=== PATIENT | male | born 1955 | race Caucasian/White ===

== ENCOUNTER 2019-03-12 16:03 | Observation (INO) | payer OTHER ==
[2019-03-12 16:45] LABS: ABSOLUTE BASOPHILS # (AUTO) 0.1 10^3/uL (0.0-0.2); ABSOLUTE EOSINOPHILS # (AUTO) 0.3 10^3/uL (0.0-0.6); ABSOLUTE LYMPHOCYTES (AUTO) 1.4 10^3/uL (0.5-4.7); ABSOLUTE MONOCYTES (AUTO) 0.9 10^3/uL (0.1-1.4); BASOPHILS % (AUTO) 1.3 % (0-2); HEMATOCRIT 39.5 % (37.9-51.0); HEMOGLOBIN 13.4 g/dL (13.5-17.0); LYMPHOCYTES % (AUTO) 18.3 % (13-45); MEAN CORPUSCULAR HEMOGLOBIN 30.9 pg (27.0-33.4); MEAN CORPUSCULAR HGB CONC 33.9 g/dL (32.0-36.0); MEAN CORPUSCULAR VOLUME 91 fl (80-97); MONOCYTES % (AUTO) 11.3 % (3-13); PLATELET COUNT 189 10^3/uL (150-450); RED BLOOD COUNT 4.33 10^6/uL (4.35-5.55); RED CELL DISTRIBUTION WIDTH 13.9 % (11.5-14.0); SEGMENTED NEUTROPHILS % (AUTO) 65.1 % (42-78); TOTAL CELLS COUNTED % (AUTO) 100 %; WHITE BLOOD COUNT 7.6 10^3/uL (4.0-10.5)
--- NOTE | 2019-03-12 16:55 | RADIOLOGY REPORT (SQ) ---
EXAM DESCRIPTION: CT HEAD WITHOUT COMPLETED DATE/TIME: 03/12/2019 4:40 pm REASON FOR STUDY: bed 18 s/p fall on blood thinners +LOC per neisha COMPARISON: None. TECHNIQUE: Axial images acquired through the brain without intravenous contrast. Images reviewed wi th bone, brain and subdural windows. Additional sagittal and coronal reconstructions were generated. Images stored on PACS. All CT scanners at this facility use dose modulation, iterative reconstruction, and/or weight based d osing when appropriate to reduce radiation dose to as low as reasonably achievable (ALARA). [facility]: Dose Right [facility]: CareDose [facility]: Dose Right [facility]: Teradose 4D [facility]: Smart [place] RADIATION DOSE: CT Rad equipment meets quality standard of care and radiation dose reduction techniq ues were employed. CTDIvol: 53.2 mGy. DLP: 991 mGy-cm. mGy. LIMITATIONS: None. FINDINGS: VENTRICLES: Normal size and contour. CEREBRUM: No masses. No hemorrhage. No midline shift. No evidence for acute infarction. Normal gra y/white matter differentiation. No areas of low density in the white matter. CEREBELLUM: No masses. No hemorrhage. No alteration of density. No evidence for acute infarction. EXTRAAXIAL SPACES: No fluid collections. No masses. ORBITS AND GLOBE: No intra- or extraconal masses. Normal contour of globe without masses. CALVARIUM: No fracture. PARANASAL SINUSES: No fluid or mucosal thickening. SOFT TISSUES: No mass or hematoma. OTHER: No other significant finding. IMPRESSION: NORMAL BRAIN CT WITHOUT CONTRAST. EVIDENCE OF ACUTE STROKE: NO. COMMENT: Quality ID # [id number]: Final reports with documentation of one or more dose reduction techniques (e.g., Automated exposure control, adjustment of the mA and/or kV according to patient size, use of iterative reconstruction technique) TECHNICAL DOCUMENTATION: JOB ID: [id number] [employer]- All Rights Reserved Reading location - IP/workstation name: [email or web address]
--- NOTE | 2019-03-12 16:56 | RADIOLOGY REPORT (SQ) ---
EXAM DESCRIPTION: CT CERVICAL SPINE WITHOUT COMPLETED DATE/TIME: 03/12/2019 4:40 pm REASON FOR STUDY: bed 18 s/p fall on blood thinners +LOC per neisha COMPARISON: None. TECHNIQUE: Axial images acquired through the cervical spine without intravenous contrast. Images re viewed with lung, soft tissue and bone windows. Reconstructed coronal and sagittal MPR images review ed. Images stored on PACS. All CT scanners at this facility use dose modulation, iterative reconstruction, and/or weight based d osing when appropriate to reduce radiation dose to as low as reasonably achievable (ALARA). [facility]: Dose Right [facility]: CareDose [facility]: Dose Right [facility]: Teradose 4D [facility]: [place] RADIATION DOSE: CT Rad equipment meets quality standard of care and radiation dose reduction techniq ues were employed. CTDIvol: 19.2 mGy. DLP: 437 mGy-cm. mGy. LIMITATIONS: None. FINDINGS: ALIGNMENT: Anatomic. MINERALIZATION: Normal. VERTEBRAL BODIES: No fractures or dislocation. DISCS: There is narrowing of the disc at C3-4 with marginal osteophytes. FACETS, LATERAL MASSES, POSTERIOR ELEMENTS: No fractures. No dislocation. No acute findings. HARDWARE: None in the spine. VISUALIZED RIBS: No fractures. LUNG APICES AND SOFT TISSUES: No significant or acute findings. OTHER: No other significant finding. IMPRESSION: Mild degenerative disc disease and spondylosis. No acute finding. TECHNICAL DOCUMENTATION: JOB ID: [id number] Quality ID # [id number]: Final reports with documentation of one or more dose reduction techniques (e.g., Au tomated exposure control, adjustment of the mA and/or kV according to patient size, use of iterative reconstruction technique) 2010 [employer]- All Rights Reserved Reading location - IP/workstation name: [email or web address]
--- NOTE | 2019-03-12 17:03 | ER Document Report ---
ED General - General Chief Complaint: Syncope Stated Complaint: POSSIBLE SYNCOPE Time Seen by Provider: 03/12/19 16:36 TRAVEL OUTSIDE OF THE [place] IN LAST 30 DAYS: No - HPI Patient complains to provider of: syncope Notes: passed out at [facility] no symptoms prior to passing out denies chest pain, headache, focal arm/leg weakness or numbness no neck stiffness no rashes Past Medical History - General Information source: Patient - Social History Smoking Status: Unknown if Ever Smoked Family History: Reviewed & Not Pertinent Patient has suicidal ideation: No Patient has homicidal ideation: No Renal/ Medical History: Denies: Hx Peritoneal Dialysis Review of Systems - Review of Systems Constitutional: No symptoms reported EENT: No symptoms reported Cardiovascular: Syncope Respiratory: No symptoms reported Gastrointestinal: No symptoms reported Genitourinary: No symptoms reported Male Genitourinary: No symptoms reported Musculoskeletal: No symptoms reported Skin: No symptoms reported Hematologic/Lymphatic: No symptoms reported Neurological/Psychological: No symptoms reported Physical Exam - Vital signs Vitals: Pulse Ox 98 03/12/19 16:16 Interpretation: Normal - General General appearance: Appears well, Alert - HEENT Head: Normocephalic, Atraumatic Eyes: Normal Pupils: PERRL - Respiratory Respiratory status: No respiratory distress Chest status: Nontender Breath sounds: Normal Chest palpation: Normal - Cardiovascular Rhythm: Regular Heart sounds: Normal auscultation Murmur: No - Abdominal Inspection: Normal Distension: No distension Bowel sounds: Normal Tenderness: Nontender Organomegaly: No organomegaly - Back Back: Normal, Nontender - Extremities General upper extremity: Normal inspection, Nontender, Normal color, Normal ROM, Normal temperature General lower extremity: Normal inspection, Nontender, Normal color, Normal ROM, Normal temperature, Normal weight bearing. No: Enrrique's sign - Neurological Neuro grossly intact: Yes Cognition: Normal Orientation: AAOx4 [place] Coma Scale Eye Opening: Spontaneous [place] Coma Scale Verbal: Oriented [place] Coma Scale Motor: Obeys Commands [place] Coma Scale Total: 15 Speech: Normal Motor strength normal: LUE, RUE, LLE, RLE Sensory: Normal - Psychological Associated symptoms: Normal affect, Normal mood - Skin Skin Temperature: Warm Skin Moisture: Dry Skin Color: Normal Course - Re-evaluation Re-evalutation: 03/12/19 17:59 patient w/ syncopal episode workup in ED unremarkable admit requested given age and h/o pacemaker (no evidence of failure at thist elan) - Vital Signs Vital signs: Temp Pulse Resp BP Pulse Ox 98 F 13 150/91 H 99 03/12/19 16:46 03/12/19 17:03 03/12/19 17:03 03/12/19 17:03 - Laboratory Result Diagrams: 03/12/19 16:30 03/12/19 16:30 Laboratory results interpreted by me: 03/12/19 03/12/19 03/12/19 16:30 16:30 16:30 RBC 4.33 L Hgb 13.4 L Carbon Dioxide 31 H Est GFR (Non-Af Amer) 59 L NT-Pro-B Natriuret Pep 1460 H - EKG Interpretation by Tn EKG shows normal: Sinus rhythm Rate: Normal - 63 Additional EKG results interpreted by me: 03/12/19 17:59 Q waves in anterior leads. Q waves in inferior leads. nonspecific T wave changes. Discharge - Discharge Clinical Impression: Syncope Qualifiers: Syncope type: unspecified Qualified Code(s): R55 - Syncope and collapse Condition: Stable Disposition: ADMITTED INPATIENT Admitting Provider: Fariba (Hospitalist) Unit Admitted: Telemetry
[2019-03-12 17:22] LABS: ALBUMIN 4.2 g/dL (3.5-5.0); ALKALINE PHOSPHATASE 57 U/L (38-126); ANION GAP 7 (5-19); ASPARTATE AMINO TRANSFERASE 43 U/L (17-59); BILIRUBIN,DIRECT 0.3 mg/dL (0.0-0.4); BILIRUBIN,TOTAL 0.5 mg/dL (0.2-1.3); BLOOD UREA NITROGEN 17 mg/dL (7-20); CALCIUM 9.1 mg/dL (8.4-10.2); CARBON DIOXIDE 31 mmol/L (22-30); CHLORIDE 101 mmol/L (98-107); CREATINE KINASE 78 U/L (55-170); GLUCOSE 94 mg/dL (75-110); TOTAL PROTEIN 7.9 g/dL (6.3-8.2)
[2019-03-12 17:33] LABS: CREATINE KINASE MB 1.04 ng/mL (<4.55)
[2019-03-12 17:37] LABS: TROPONIN I < 0.012 ng/mL
--- NOTE | 2019-03-12 17:53 | EKG REPORT ---
SEVERITY:- ABNORMAL ECG - SINUS RHYTHM PROBABLE INFERIOR INFARCT, AGE INDETERMINATE ANTERIOR INFARCT, AGE INDETERMINATE BORDERLINE PROLONGED QT INTERVAL : Confirmed by: Danielito Be MD 12-Mar-2019 17:52:39
[2019-03-12 18:04] LABS: APPEARANCE,URINE CLEAR; BILIRUBIN,URINE NEGATIVE (NEGATIVE); COLOR,URINE YELLOW; GLUCOSE, URINE NEGATIVE (NEGATIVE); KETONES,URINE NEGATIVE (NEGATIVE); LEUKOCYTE ESTERASE,URINE NEGATIVE (NEGATIVE); NITRITE,URINE NEGATIVE (NEGATIVE); PROTEIN,URINE NEGATIVE (NEGATIVE); URINE SPECIFIC GRAVITY 1.009; UROBILINOGEN,URINE NEGATIVE mg/dL (<2.0)
[2019-03-12] MEDS ORDERED: NORMAL SALINE 1000 ML 1,000 ML IV PRN (18:15)
--- NOTE | 2019-03-12 18:38 | ADVANCED CARE ---
- Diagnosis (1) Syncope Diagnosis Current: Yes (2) CAD (coronary artery disease) Diagnosis Current: Yes Resuscitation Status: Full Code Discussion: Discussed with patient. He says he is a full code and prefers chest compressions, defibrillation or mechanical ventilation if the need arises. He says that his , Nichole Tiwari is his surrogate medical decision maker.
--- NOTE | 2019-03-12 18:38 | PDOC H&P ---
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 Patient says that he was walking at [facility] around 3 PM and he suddenly passed out. He denies any prodromal symptoms and denies any palpitations, lightheadedness or dimming of vision prior to the episode. He says he will and denies any confusion but was not sure how he passed out. He denies any urinary bowel incontinence. No reported seizure-like activity. Upon encounter, he appears comfortable and denies any chest pain or shortness of breath. He does say that he has been drinking more coffee in the past few days and thinks he might have been dehydrated. He is not sure why he had an AICD placed but he did say that he arrested in 2000 from an UT and was resuscitated. He said that he had a stent placement that time. He says that the AICD was placed in 2004 at the [facility] but is not sure about the specific reason. He denies recalling a previous diagnosis of CHF. Social History Smoking Status: Unknown if Ever Smoked Family History Family History: Reviewed & Not Pertinent Parental Family History Reviewed: Yes - No premature CAD Children Family History Reviewed: No Sibling(s) Family History Reviewed.: No Review of Systems All systems: reviewed and no additional remarkable complaints except as stated - As mentioned in HPI Physical Exam Vital Signs: Temp Pulse Resp BP Pulse Ox 98 F 13 150/91 H 99 03/12/19 16:46 03/12/19 17:03 03/12/19 17:03 03/12/19 17:03 Intake & Output 03/11/19 03/12/19 03/13/19 06:59 06:59 06:59 Weight 190 lb General appearance: PRESENT: no acute distress, well-developed, well-nourished Head exam: PRESENT: atraumatic, normocephalic Eye exam: PRESENT: conjunctiva pink, EOMI, PERRLA. ABSENT: scleral icterus Ear exam: PRESENT: normal external ear exam Mouth exam: PRESENT: moist, tongue midline Neck exam: ABSENT: carotid bruit, JVD, lymphadenopathy, thyromegaly Respiratory exam: PRESENT: clear to auscultation nayely. ABSENT: rales, rhonchi, wheezes Cardiovascular exam: PRESENT: RRR. ABSENT: diastolic murmur, rubs, systolic murmur Pulses: PRESENT: normal dorsalis pedis pul GI/Abdominal exam: PRESENT: normal bowel sounds, soft. ABSENT: distended, guarding, mass, organolmegaly, rebound, tenderness Rectal exam: PRESENT: deferred Neurological exam: PRESENT: alert, awake, oriented to person, oriented to place, oriented to time, oriented to situation, CN II-XII grossly intact. ABSENT: motor sensory deficit Results Laboratory Results: 03/12/19 16:30 03/12/19 16:30 03/12/19 03/12/19 03/12/19 16:30 16:30 17:28 WBC 7.6 RBC 4.33 L Hgb 13.4 L Hct 39.5 MCV 91 MCH 30.9 MCHC 33.9 RDW 13.9 Plt Count 189 Seg Neutrophils % 65.1 Lymphocytes % 18.3 Monocytes % 11.3 Eosinophils % 4.0 Basophils % 1.3 Absolute Neutrophils 5.0 Absolute Lymphocytes 1.4 Absolute Monocytes 0.9 Absolute Eosinophils 0.3 Absolute Basophils 0.1 Sodium 138.7 Potassium 4.0 Chloride 101 Carbon Dioxide 31 H Anion Gap 7 BUN 17 Creatinine 1.24 Est GFR ( Amer) > 60 Est GFR (Non-Af Amer) 59 L Glucose 94 Calcium 9.1 Total Bilirubin 0.5 AST 43 Alkaline Phosphatase 57 Total Protein 7.9 Albumin 4.2 Urine Color YELLOW Urine Appearance CLEAR Urine pH 6.0 Ur Specific [place] 1.009 Urine Protein NEGATIVE Urine Glucose (UA) NEGATIVE Urine Ketones NEGATIVE Urine Blood LARGE H Urine Nitrite NEGATIVE Ur Leukocyte Esterase NEGATIVE Urine WBC (Auto) 0 Urine RBC (Auto) 19 03/12/19 03/12/19 03/12/19 16:30 16:30 16:30 Creatine Kinase 78 CK-MB (CK-2) 1.04 Troponin I < 0.012 NT-Pro-B Natriuret Pep 1460 H Impressions: Cervical Spine CT 03/12/19 00:00 IMPRESSION: Mild degenerative disc disease and spondylosis. No acute finding. Head CT 03/12/19 00:00 IMPRESSION: NORMAL BRAIN CT WITHOUT CONTRAST. EVIDENCE OF ACUTE STROKE: NO. Assessment and Plan - Diagnosis (1) Syncope Qualifiers: Syncope type: unspecified Qualified Code(s): R55 - Syncope and collapse Is this a current diagnosis for this admission?: Yes Plan: CT head was negative. We will check orthostatic vital signs. Will observe patient on telemetry overnight. Will also order for pacemaker interrogation. Order carotid Dopplers. Work-up has been unremarkable so far. He does have an elevated BNP but denies CHF symptoms. He denies PND or exertional dyspnea. He does not recall previou s diagnosis of CHF. Will request records from PCP first. Consider pursuing an echocardiogram if no previous echo has been done recently with PCP. Request records from PCP. (2) CAD (coronary artery disease) Is this a current diagnosis for this admission?: Yes Plan: Resume home meds once verified. - Time Time Spent with patient: 25-34 minutes
[2019-03-12] MEDS: HEPARIN SOD (PORCINE) 5,000 UNIT/ML 1 ML VIAL SUBCUT SCH (23:26)
[2019-03-12] MEDS: KETOROLAC TROMETHAMINE INJ/PF 30 MG/1 ML SDV IV PRN (23:30)
[2019-03-13] MEDS: HEPARIN SOD (PORCINE) 5,000 UNIT/ML 1 ML VIAL SUBCUT SCH (09:20)
--- NOTE | 2019-03-13 09:22 | Progress Note Acknowledgement ---
Progress Note Acknowledgement Progess Note Acknowledgement: I, the undersigned member of the medical staff with appropriate privileges and with supervisory authority over [Dominick Gutiérrez], a dependent practice allied health professional, acknowledge that I have reviewed the progress notes entered on this patient, and in my professional judgment believe that the assessment made and/or any care evidenced was appropriate
--- NOTE | 2019-03-13 09:25 | PDOC PROGRESS REPORT ---
Subjective Progress Note for:: 03/13/19 Subjective:: March-no complaints this a.m. Reason For Visit: SYNCOPE Physical Exam Vital Signs: Temp Pulse Resp BP Pulse Ox 97.6 F 61 14 128/58 H 99 03/13/19 08:18 03/13/19 08:18 03/13/19 08:18 03/13/19 08:18 03/13/19 08:18 Intake & Output 03/12/19 03/13/19 03/14/19 06:59 06:59 06:59 Weight 86.2 kg General appearance: PRESENT: no acute distress, well-developed, well-nourished Head exam: PRESENT: atraumatic, normocephalic Eye exam: PRESENT: conjunctiva pink, EOMI, PERRLA. ABSENT: scleral icterus Ear exam: PRESENT: normal external ear exam Mouth exam: PRESENT: moist, tongue midline Neck exam: ABSENT: carotid bruit, JVD, lymphadenopathy, thyromegaly Respiratory exam: PRESENT: clear to auscultation nayely. ABSENT: rales, rhonchi, wheezes Cardiovascular exam: PRESENT: RRR. ABSENT: diastolic murmur, rubs, systolic murmur Pulses: PRESENT: normal dorsalis pedis pul Vascular exam: PRESENT: normal capillary refill GI/Abdominal exam: PRESENT: normal bowel sounds, soft. ABSENT: distended, guarding, mass, organolmegaly, rebound, tenderness Rectal exam: PRESENT: deferred Extremities exam: PRESENT: full ROM. ABSENT: calf tenderness, clubbing, pedal edema Neurological exam: PRESENT: alert, awake, oriented to person, oriented to place, oriented to time, oriented to situation, CN II-XII grossly intact. ABSENT: motor sensory deficit Psychiatric exam: PRESENT: appropriate affect, normal mood. ABSENT: homicidal ideation, suicidal ideation Skin exam: PRESENT: dry, intact, warm. ABSENT: cyanosis, rash Results Laboratory Results: 03/12/19 16:30 03/12/19 16:30 03/12/19 03/12/19 03/12/19 16:30 16:30 17:28 WBC 7.6 RBC 4.33 L Hgb 13.4 L Hct 39.5 MCV 91 MCH 30.9 MCHC 33.9 RDW 13.9 Plt Count 189 Seg Neutrophils % 65.1 Lymphocytes % 18.3 Monocytes % 11.3 Eosinophils % 4.0 Basophils % 1.3 Absolute Neutrophils 5.0 Absolute Lymphocytes 1.4 Absolute Monocytes 0.9 Absolute Eosinophils 0.3 Absolute Basophils 0.1 Sodium 138.7 Potassium 4.0 Chloride 101 Carbon Dioxide 31 H Anion Gap 7 BUN 17 Creatinine 1.24 Est GFR ( Amer) > 60 Est GFR (Non-Af Amer) 59 L Glucose 94 Calcium 9.1 Total Bilirubin 0.5 AST 43 Alkaline Phosphatase 57 Total Protein 7.9 Albumin 4.2 Urine Color YELLOW Urine Appearance CLEAR Urine pH 6.0 Ur Specific [place] 1.009 Urine Protein NEGATIVE Urine Glucose (UA) NEGATIVE Urine Ketones NEGATIVE Urine Blood LARGE H Urine Nitrite NEGATIVE Ur Leukocyte Esterase NEGATIVE Urine WBC (Auto) 0 Urine RBC (Auto) 19 03/12/19 03/12/19 03/12/19 16:30 16:30 16:30 Creatine Kinase 78 CK-MB (CK-2) 1.04 Troponin I < 0.012 NT-Pro-B Natriuret Pep 1460 H Impressions: Cervical Spine CT 03/12/19 00:00 IMPRESSION: Mild degenerative disc disease and spondylosis. No acute finding. Head CT 03/12/19 00:00 IMPRESSION: NORMAL BRAIN CT WITHOUT CONTRAST. EVIDENCE OF ACUTE STROKE: NO. Assessment and Plan - Diagnosis (1) Syncope Qualifiers: Syncope type: unspecified Qualified Code(s): R55 - Syncope and collapse Is this a current diagnosis for this admission?: Yes Plan: CT head was negative. We will check orthostatic vital signs. Will observe patient on telemetry overnight. Will also order for pacemaker interrogation. Order carotid Dopplers. Work-up has been unremarkable so far. He does have an elevated BNP but denies CHF symptoms. He denies PND or exertional dyspnea. He does not recall previous diagnosis of CHF. Will request records from PCP first. Consider pursuing an echocardiogram if no previous echo has been done recently with PCP. Request records from PCP. March 13, 2019-patient with no complaints this a.m. Patient had persistent p aced rhythm at 60. Awaiting carotid Doppler, pacemaker interrogation. Awaiting patient's to bring in home medications. We will continue to follow. Awaiting records from primary care practitioner as well. (2) CAD (coronary artery disease) Is this a current diagnosis for this admission?: Yes Plan: Resume home meds once verified. March 13, 2019-awaiting meds from home for verification. - Time Time Spent with patient: 15-24 minutes - Inpatient Certification Based on my medical assessment, after consideration of the patient's comorbidities, presenting symptoms, or acuity I expect that the services needed warrant INPATIENT care.: Yes I certify that my determination is in accordance with my understanding of Medicare's requirements for reasonable and necessary INPATIENT services [42 CFR 412.3e].: Yes Medical Necessity: Other - Cardiac monitoring, carotid Doppler, pacemaker interrogation
[2019-03-13] MEDS ORDERED: FUROSEMIDE INJ/PF 40 MG/4 ML SDV IV ONE (10:30)
--- NOTE | 2019-03-13 11:51 | RADIOLOGY REPORT (SQ) ---
EXAM DESCRIPTION: CHEST SINGLE VIEW COMPLETED DATE/TIME: 03/13/2019 10:36 am REASON FOR STUDY: CHF COMPARISON: None. NUMBER OF VIEWS: One view. TECHNIQUE: Single frontal radiographic view of the chest acquired. LIMITATIONS: None. FINDINGS: LUNGS AND PLEURA: No opacities, masses or pneumothorax. No pleural effusion. MEDIASTINUM AND HILAR STRUCTURES: No masses. Contour normal. HEART AND VASCULAR STRUCTURES: Heart normal in size. Normal vasculature. BONES: No acute findings. HARDWARE: Battery pack and leads are in place. OTHER: No other significant finding. IMPRESSION: NO SIGNIFICANT RADIOGRAPHIC FINDING IN THE CHEST. TECHNICAL DOCUMENTATION: JOB ID: [id number] [employer]- All Rights Reserved Reading location - IP/workstation name: [email or web address]
--- NOTE | 2019-03-13 14:17 | RADIOLOGY REPORT (SQ) ---
EXAM DESCRIPTION: CAROTID DOPPLER COMPLETED DATE/TIME: 03/13/2019 1:42 pm REASON FOR STUDY: syncope COMPARISON: None. TECHNIQUE: Grayscale ultrasound, Doppler velocity and spectra, and color Doppler images acquired of the extra-cranial carotid and vertebral arteries. Images stored on PACS. LIMITATIONS: None. FINDINGS: RIGHT CAROTID CCA Velocities: Within normal limits. ICA Velocities Peak systolic 57 cm/s. End diastolic 17 cm/s. Proximal ICA/CCA peak systolic ratio 0.5. Spectra normal. No significant plaque. LEFT CAROTID CCA Velocities: Within normal limits. ICA Velocities Peak systolic 48 cm/s. End diastolic 15 cm/s. Proximal ICA/CCA peak systolic ratio 0.5. Spectra normal. No significant plaque. VERTEBRAL ARTERIES: Antegrade flow. Normal waveforms. SUBCLAVIAN ARTERIES: No finding. OTHER: No other significant finding. IMPRESSION: NO HEMODYNAMICALLY SIGNIFICANT STENOSIS. COMMENT: Quality ID #[id number]: Velocity criteria are extrapolated from the diameter data as defined by t he Society of Radiologists in Ultrasound Consensus Conference. Radiology 2003: 229; 340-346. TECHNICAL DOCUMENTATION: JOB ID: [id number] [employer]- All Rights Reserved Reading location - IP/workstation name: [email or web address]
[2019-03-13] MEDS: KETOROLAC TROMETHAMINE INJ/PF 30 MG/1 ML SDV IV PRN (18:48)
[2019-03-14] MEDS: HEPARIN SOD (PORCINE) 5,000 UNIT/ML 1 ML VIAL SUBCUT SCH ×2 (00:56→10:34)
[2019-03-14] MEDS: KETOROLAC TROMETHAMINE INJ/PF 30 MG/1 ML SDV IV PRN (00:56)
[2019-03-14] MEDS ORDERED: ROPINIROLE HCL 1 MG TABLET PO ONE (01:45)
[2019-03-14] MEDS ORDERED: ATORVASTATIN CALCIUM 80 MG TABLET PO ONE (01:45)
[2019-03-14 06:37] LABS: HEMATOCRIT 37.9 % (37.9-51.0); HEMOGLOBIN 12.7 g/dL (13.5-17.0); MEAN CORPUSCULAR HEMOGLOBIN 30.5 pg (27.0-33.4); MEAN CORPUSCULAR HGB CONC 33.5 g/dL (32.0-36.0); MEAN CORPUSCULAR VOLUME 91 fl (80-97); PLATELET COUNT 172 10^3/uL (150-450); RED BLOOD COUNT 4.17 10^6/uL (4.35-5.55); RED CELL DISTRIBUTION WIDTH 14.2 % (11.5-14.0); WHITE BLOOD COUNT 6.2 10^3/uL (4.0-10.5)
[2019-03-14 06:56] LABS: ANION GAP 8 (5-19); BLOOD UREA NITROGEN 24 mg/dL (7-20); CALCIUM 9.1 mg/dL (8.4-10.2); CARBON DIOXIDE 29 mmol/L (22-30); CHLORIDE 102 mmol/L (98-107); GLUCOSE 94 mg/dL (75-110); POTASSIUM 4.2 mmol/L (3.6-5.0)
[2019-03-14] MEDS ORDERED: ROPINIROLE HCL 1 MG TABLET PO SCH (10:00)
[2019-03-14] MEDS ORDERED: CLOPIDOGREL BISULFATE 75 MG TABLET PO SCH (10:00)
[2019-03-14] MEDS ORDERED: DONEPEZIL HCL 5 MG TABLET PO SCH (10:00)
[2019-03-14] MEDS ORDERED: DIGOXIN 0.125 MG TABLET PO SCH (10:00)
--- NOTE | 2019-03-14 10:24 | PDOC DISCHARGE SUMMARY ---
General - Admit/Disc Date/PCP Admission Date/Primary Care Provider: 03/12/19 18:10 [facility] Discharge Date: 03/14/19 - Discharge Diagnosis (1) Syncope Is this a current diagnosis for this admission?: Yes (2) CAD (coronary artery disease) Is this a current diagnosis for this admission?: Yes - Additional Information Resuscitation Status: Full Code Discharge Diet: As Tolerated Discharge Activity: Activity As Tolerated Home Medications: Atorvastatin Calcium [Lipitor 80 mg Tablet] 80 mg PO QHS 03/13/19 Clopidogrel Bisulfate [Plavix 75 mg Tablet] 75 mg PO DAILY 03/13/19 Digoxin 125 mcg PO DAILY 03/13/19 Donepezil HCl 10 mg PO DAILY 03/13/19 Ropinirole HCl 3 mg PO BID 03/13/19 History of Present Illness Patient complains of: None this a.m. History of Present Illness: KEVEN MENDEZ is a 63 year old male who presented on 03/12/2019 with a syncopal episode at [facility]. Hospital Course Hospital Course: Mr. Mendez is a pleasant 63-year-old gentleman with a history of coronary artery disease with an internal defibrillator/pacemaker. Patient was [facility] on 03/12/2015 had a lightheaded episode where he passed out at [facility]. Patient p resented for further evaluation treatment. Patient underwent echocardiogram showed no significant findings but did have an interrogation of his pacemaker showed a defibrillation for V. fib at the time that he was at [facility]. Testing has been negative this time other than showing this V. fib with the fibrillation on his ICD interrogation. 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 Patient is understanding of this can plan of care. Physical Exam Vital Signs: Temp Pulse Resp BP Pulse Ox 97.8 F 62 16 123/69 99 03/14/19 08:23 03/14/19 08:23 03/14/19 08:23 03/14/19 08:23 03/14/19 08:23 Intake & Output 03/13/19 03/14/19 03/15/19 06:59 06:59 06:59 Intake Total 1262 Balance 1262 Weight 86.2 kg 87.4 kg General appearance: PRESENT: no acute distress, well-developed, well-nourished Head exam: PRESENT: atraumatic, normocephalic Eye exam: PRESENT: conjunctiva pink, EOMI, PERRLA. ABSENT: scleral icterus Ear exam: PRESENT: normal external ear exam Mouth exam: PRESENT: moist, tongue midline Teeth exam: PRESENT: poor dentation Neck exam: ABSENT: carotid bruit, JVD, lymphadenopathy, thyromegaly Respiratory exam: PRESENT: clear to auscultation nayely. ABSENT: rales, rhonchi, wheezes Cardiovascular exam: PRESENT: RRR. ABSENT: diastolic murmur, rubs, systolic murmur Pulses: PRESENT: normal dorsalis pedis pul Vascular exam: PRESENT: normal capillary refill GI/Abdominal exam: PRESENT: normal bowel sounds, soft. ABSENT: distended, guarding, mass, organolmegaly, rebound, tenderness Rectal exam: PRESENT: deferred Extremities exam: PRESENT: full ROM. ABSENT: calf tenderness, clubbing, pedal edema Neurological exam: PRESENT: alert, awake, oriented to person, oriented to place, oriented to time, oriented to situation, CN II-XII grossly intact. ABSENT: motor sensory deficit Psychiatric exam: PRESENT: appropriate affect, normal mood. ABSENT: homicidal ideation, suicidal ideation Skin exam: PRESENT: dry, intact, warm. ABSENT: cyanosis, rash Results Laboratory Results: 03/14/19 06:14 03/14/19 06:14 03/14/19 03/14/19 06:14 06:14 WBC 6.2 RBC 4.17 L Hgb 12.7 L Hct 37.9 MCV 91 MCH 30.5 MCHC 33.5 RDW 14.2 H Plt Count 172 Sodium 139.3 Potassium 4.2 Chloride 102 Carbon Dioxide 29 Anion Gap 8 BUN 24 H Creatinine 1.27 H Est GFR ( Amer) > 60 Est GFR (Non-Af Amer) 57 L Glucose 94 Calcium 9.1 03/12/19 03/12/19 03/12/19 16:30 16:30 16:30 Creatine Kinase 78 CK-MB (CK-2) 1.04 Troponin I < 0.012 NT-Pro-B Natriuret Pep 1460 H Impressions: Cervical Spine CT 03/12/19 00:00 IMPRESSION: Mild degenerative disc disease and spondylosis. No acute finding. Head CT 03/12/19 00:00 IMPRESSION: NORMAL BRAIN CT WITHOUT CONTRAST. EVIDENCE OF ACUTE STROKE: NO. Carotid Doppler Study 03/13/19 00:00 IMPRESSION: NO HEMODYNAMICALLY SIGNIFICANT STENOSIS. Chest X-Ray 03/13/19 00:00 IMPRESSION: NO SIGNIFICANT RADIOGRAPHIC FINDING IN THE CHEST. Qualifiers - * PATIENT BEING DISCHARGED WITH ANY OF THE FOLLOWING DIAGNOSIS: No Acute Heart Failure - Is this a Heart Failure Patient?: No Plan Time Spent: Greater than 30 Minutes
--- NOTE | 2019-03-14 10:26 | ADVANCED CARE ---
- Diagnosis (1) Syncope Diagnosis Current: Yes (2) CAD (coronary artery disease) Diagnosis Current: Yes Attendance: Myself and patient Resuscitation Status: Full Code Discussion: Discussed the fact that patient's defibrillator was most likely reason that he had this syncopal episode. [facility] and around that time according to his pacemaker interrogation the defibrillator did shock him at 31 J. Patient had multiple testing here that was negative patient will follow-up with primary care and cardiology with 1 week. Patient is understanding of plan of care. Care Planning Goals: 1-primary care follow-up 2-cardiology follow-up Time Spent: 20 minutes
[2019-03-14 11:22] VITALS: BP 115/69
[2019-03-14] MEDS ORDERED: ATORVASTATIN CALCIUM 80 MG TABLET PO SCH (22:00)
== END 2019-03-14 11:37 | disposition home or self-care (01) ==
LOC: ER 16:03 → EH 18:10 → INTOOBSV 18:10 → 4N 19:49
PROVIDERS: ADMIT Internal Medicine; ATTEND Internal Medicine
PROC: 4B02XTZ Measurement of Cardiac Defibrillator, External Approach (ICD-10-PCS; principal; 2019-03-12)
DX: R55 Syncope and collapse (principal); I25.10 Atherosclerotic heart disease of native coronary artery without angina pectoris; I49.01 Ventricular fibrillation; I25.2 Old myocardial infarction; R79.89 Other specified abnormal findings of blood chemistry; Z79.899 Other long term (current) drug therapy; Z45.02 Encounter for adjustment and management of automatic implantable cardiac defibrillator; Z95.5 Presence of coronary angioplasty implant and graft; Z86.73 Personal history of transient ischemic attack (TIA), and cerebral infarction without residual deficits
CPT/HCPCS: 93005; 99285; 36415 ×2; 82553; 82550; 85025; 85027; 80048; 80053; 81001; 84484; 83880; 93880; 71045; 70450; 72125; 93010; 93261; G0378 ×4; J1940; J1885 ×3; J3490; J7030